=== PATIENT | female | born 1980 | race Asian ===

== ENCOUNTER 2017-01-30 20:54 | Emergency (ER) | payer MEDICAID, OTHER ==
[~2017-01-30] VITALS: Ht 172.7 cm; Wt 121.7 kg
[2017-01-30] MEDS ORDERED: MORPHINE SULFATE 4 MG/ML, 1ML IVPush PRN (21:30)
[2017-01-30] MEDS ORDERED: MORPHINE SULFATE 4 MG/ML, 1ML ONE (21:30)
[2017-01-30] MEDS ORDERED: ONDANSETRON 2MG/ML, 2ML IVPush ONE (21:30)
[2017-01-30] MEDS ORDERED: ONDANSETRON 2MG/ML, 2ML ONE (21:30)
[2017-01-30 21:47] LABS: HEMATOCRIT 41.9 % (34.6-47.8); HEMOGLOBIN 13.6 g/dL (11.7-16.4)
[2017-01-30 22:00] LABS: ASPARTATE AMINO TRANSFERASE 17 U/L (15-37); BLOOD UREA NITROGEN 10 mg/dL (7-18)
[2017-01-30 22:54] VITALS: BP 107/77
== END 2017-01-30 23:58 | disposition home or self-care (01) ==
LOC: EDSEX 20:54 → ED 23:52
DX: R10.12 Left upper quadrant pain (principal); R10.32 Left lower quadrant pain
CPT/HCPCS: 36415; 74176; 80053; 81003; 83690; 84703; 85025; 96374; 96375; 99285; J2405